=== PATIENT | male | born 1995 | race Caucasian/White ===

== ENCOUNTER 2024-07-15 13:19 | Emergency (ER) | payer SELFPAY ==
[~2024-07-15] VITALS: Ht 175.3 cm; Wt 85.0 kg
[2024-07-15 13:24] VITALS: BP 120/77; RESP 18; TEMP 36.7; O2SAT 98
[2024-07-15 13:28] VITALS: PULSE 76; O2SAT 100
== END 2024-07-15 13:58 | disposition home or self-care (01) ==
LOC: ER 13:19
DX: F41.0 Panic disorder [episodic paroxysmal anxiety] (principal)
CPT/HCPCS: 99281